=== PATIENT | male | born 2000 | race Caucasian/White ===

== ENCOUNTER 2021-03-22 13:56 | Inpatient (IN) | payer MEDICAID, OTHER ==
[~2021-03-22] VITALS: Ht 185.4 cm; Wt 143.3 kg
[2021-03-22] MEDS ORDERED: ONDANSETRON HCL 4MG/2ML INJ IV STA ×2 (16:41→20:04)
[2021-03-22] MEDS ORDERED: MORPHINE SULFATE 4 MG/ML CPJ (NOT FOR IM USE) IV STA ×2 (16:41→20:04)
[2021-03-22] MEDS ORDERED: SODIUM CHLORIDE 0.9% 1,000 ML IV ONE (16:45)
[2021-03-22 16:58] LABS: CHLORIDE 105 mEq/L (98-107)
[2021-03-22 17:01] LABS: PROTHROMBIN TIME 10.8 sec (9.6-11.0)
[2021-03-22 17:03] LABS: BASOPHILS % 0.2 % (0.0-2.0); EOSINOPHILS % 1.3 % (0.0-5.0); HEMATOCRIT. 43.5 % (42.0-52.0); HEMOGLOBIN. 15.5 g/dL (14.0-18.0); LYMPHOCYTES % 27.9 % (20.0-50.0); MEAN CORPUSCULAR HEMOGLOBIN 32.3 pg (28.0-32.0); MEAN CORPUSCULAR VOLUME 90.8 fL (80.0-94.0); MEAN PLATELET VOLUME 9.2 fl (7.4-10.4); MONOCYTES % 6.2 % (2.0-8.0); NEUTROPHILS % 64.4 % (40.0-76.0); PLATELET 269 x1000/uL (130-400); RED BLOOD CELL COUNT 4.79 mill/uL (4.7-6.1); RED CELL DISTRIBUTION WIDTH 13.3 % (11.6-14.6)
[2021-03-22 17:55] LABS: CLARITY URINE CLEAR (CLEAR); COLOR URINE YELLOW (YELLOW); KETONES URINE NEGATIVE (NEGATIVE); LEUKOCYTE ESTERASE URINE NEGATIVE (NEGATIVE); NITRITE URINE NEGATIVE (NEGATIVE); OCCULT BLOOD URINE NEGATIVE (NEGATIVE); PROTEIN URINE NEGATIVE (NEGATIVE); SPECIFIC GRAVITY URINE 1.024 (1.005-1.030); UROBILINOGEN URINE 0.2 E.U./dL (0.2-1.0)
[2021-03-22] MEDS ORDERED: DEXAMETHASONE 4MG/ML 1ML VIAL IV ONE (19:30)
[2021-03-22] MEDS ORDERED: MORPHINE SULFATE 2 MG/ML CPJ (NOT FOR IM USE) IV PRN (21:15)
[2021-03-22] MEDS ORDERED: NALOXONE HCL 0.4MG/ML VIAL IV PRN (21:30)
[2021-03-22] MEDS ORDERED: CYCL10TA7 PO (23:24)
[2021-03-22] MEDS ORDERED: DICL1TAB55 MT (23:24)
[2021-03-22] MEDS: DEXAMETHASONE 4MG/ML 1ML VIAL IV SCH (23:59)
[2021-03-23] VITALS: BP 137/76
[2021-03-23 00:50] VITALS: BP 143/79
[2021-03-23 04:00] VITALS: BP 140/84
[2021-03-23] MEDS: DEXT 5%/LACTATED RINGERS 1,000 ML IV SCH ×4 (05:12→22:46)
[2021-03-23] MEDS: DEXAMETHASONE 4MG/ML 1ML VIAL IV SCH (05:14)
[2021-03-23] MEDS ORDERED: LIDOCAINE HCL/EPINEPHRINE 1%-EPI 1:100,000 10 ML VIAL ONE ×2 (06:23→07:01)
[2021-03-23] MEDS ORDERED: THROMBIN (BOVINE) 5000 UNITS/VIAL TOP ONE (06:24)
[2021-03-23] MEDS ORDERED: BACITRACIN 50,000 UNITS/VIAL ONE (06:24)
[2021-03-23] MEDS ORDERED: PHENYLEPHRINE HCL 10 MG/ML 1ML (IV VIAL) IV ONE (07:14)
[2021-03-23] MEDS ORDERED: FENTANYL CITRATE/PF 50MCG/ML 2ML VIAL ONE ×3 (07:14→07:59)
[2021-03-23] MEDS ORDERED: GLYCOPYRROLATE 0.2 MG/ML 2ML VIAL ONE (07:14)
[2021-03-23] MEDS ORDERED: NEOSTIGMINE METHYLSULFATE 1MG/ML 10 ML VIAL ONE (07:14)
[2021-03-23] MEDS ORDERED: ROCURONIUM BROMIDE 10MG/ML VIAL 5ML IV ONE ×3 (07:14→08:11)
[2021-03-23] MEDS ORDERED: MIDAZOLAM HCL 2 MG/2 ML VIAL ONE (07:14)
[2021-03-23] MEDS ORDERED: PROPOFOL 200MG/20ML VIAL IV ONE ×2 (07:14→07:59)
[2021-03-23] MEDS ORDERED: SUCCINYLCHOLINE CHLORIDE 200MG/10ML IV ONE (07:15)
[2021-03-23] MEDS ORDERED: METOCLOPRAMIDE HCL 10MG/2ML VIAL ONE (07:15)
[2021-03-23] MEDS ORDERED: MORPHINE SULFATE 2 MG/ML CPJ (NOT FOR IM USE) IV PRN ×2 (07:15→10:45)
[2021-03-23] MEDS ORDERED: ONDANSETRON HCL 4MG/2ML INJ ONE (07:15)
[2021-03-23] MEDS ORDERED: DEXAMETHASONE 4MG/ML 1ML VIAL ONE (07:15)
[2021-03-23] MEDS ORDERED: SODIUM CHLORIDE 0.9% 10ML VIAL ONE (07:15)
[2021-03-23] MEDS ORDERED: CEFAZOLIN SODIUM 1000MG/VIAL ONE (07:15)
[2021-03-23] MEDS ORDERED: HYDRALAZINE 20MG/ML VIAL IV PRN (10:15)
[2021-03-23] MEDS: MORPHINE SULFATE 4 MG/ML CPJ (NOT FOR IM USE) IV PRN ×2 (10:31→15:41)
[2021-03-23] MEDS: ONDANSETRON HCL 4MG/2ML INJ IV PRN ×2 (10:40→11:55)
[2021-03-23] MEDS ORDERED: MEPERIDINE HCL/PF 25MG/ML CPJ IV PRN ×2 (10:45)
[2021-03-23] MEDS ORDERED: HYDROMORPHONE HCL/PF 2MG/ML CPJ IV PRN (10:45)
[2021-03-23] MEDS ORDERED: SODIUM CHLORIDE 0.9% 1,000 ML IV ONE (10:45)
[2021-03-23 12:45] VITALS: BP 141/84
[2021-03-23] MEDS ORDERED: HYDRALAZINE 5 MG in SODIUM CHLORIDE 0.9% 49.75 ML IV PRN (13:30)
[2021-03-23] MEDS ORDERED: CEFAZOLIN SODIUM 1000MG/VIAL IV SCH (14:00)
[2021-03-23 16:00] VITALS: BP 121/67
[2021-03-23] MEDS: CEFAZOLIN 1000MG PREMIX 50 ML IV SCH ×2 (17:26→21:52)
[2021-03-23] MEDS: HYDROCODONE/ACETAMINOPHEN 5/325MG TABLET PO PRN (19:00)
[2021-03-24] VITALS (7 sets, daily range): BP systolic 116–139; BP diastolic 63–81
[2021-03-24] MEDS: MORPHINE SULFATE 4 MG/ML CPJ (NOT FOR IM USE) IV PRN ×3 (04:30→18:30)
[2021-03-24] MEDS: CEFAZOLIN 1000MG PREMIX 50 ML IV SCH ×3 (06:19→22:16)
[2021-03-24] MEDS: DEXT 5%/LACTATED RINGERS 1,000 ML IV SCH ×3 (06:20→22:16)
[2021-03-24 06:39] LABS: CHLORIDE 102 mEq/L (98-107)
[2021-03-24 06:45] LABS: BASOPHILS % 0.1 % (0.0-2.0); EOSINOPHILS % 0.1 % (0.0-5.0); HEMATOCRIT. 36.4 % (42.0-52.0); HEMOGLOBIN. 12.2 g/dL (14.0-18.0); LYMPHOCYTES % 21.6 % (20.0-50.0); MEAN CORPUSCULAR VOLUME 92.5 fL (80.0-94.0); MEAN PLATELET VOLUME 8.9 fl (7.4-10.4); MONOCYTES % 9.8 % (2.0-8.0); NEUTROPHILS % 68.4 % (40.0-76.0); PLATELET 244 x1000/uL (130-400); RED BLOOD CELL COUNT 3.94 mill/uL (4.7-6.1); RED CELL DISTRIBUTION WIDTH 13.1 % (11.6-14.6)
[2021-03-24] MEDS: DEXAMETHASONE 4MG/ML 1ML VIAL IV SCH ×2 (12:28→18:29)
[2021-03-24 21:19] LABS: HEPATITIS B SURFACE ANTIGEN NEGATIVE
[2021-03-24 21:48] LABS: HEPATITIS A AB IGM NEGATIVE (NEGATIVE)
[2021-03-25] VITALS: BP 140/76
[2021-03-25] MEDS: DEXAMETHASONE 4MG/ML 1ML VIAL IV SCH ×3 (01:06→13:53)
[2021-03-25] MEDS: MORPHINE SULFATE 4 MG/ML CPJ (NOT FOR IM USE) IV PRN ×4 (01:07→20:36)
[2021-03-25 04:00] VITALS: BP 128/68
[2021-03-25] MEDS: DEXT 5%/LACTATED RINGERS 1,000 ML IV SCH ×3 (05:45→23:24)
[2021-03-25] MEDS: CEFAZOLIN 1000MG PREMIX 50 ML IV SCH ×2 (05:46→13:53)
[2021-03-25 07:31] LABS: CHLORIDE 102 mEq/L (98-107)
[2021-03-25 07:42] LABS: BASOPHILS % 0.1 % (0.0-2.0); HEMATOCRIT. 36.3 % (42.0-52.0); HEMOGLOBIN. 12.1 g/dL (14.0-18.0); LYMPHOCYTES % 10.3 % (20.0-50.0); MEAN CORPUSCULAR HEMOGLOBIN 30.9 pg (28.0-32.0); MEAN CORPUSCULAR VOLUME 92.5 fL (80.0-94.0); MEAN PLATELET VOLUME 8.9 fl (7.4-10.4); MONOCYTES % 6.3 % (2.0-8.0); NEUTROPHILS % 83.3 % (40.0-76.0); PLATELET 265 x1000/uL (130-400); RED BLOOD CELL COUNT 3.92 mill/uL (4.7-6.1); RED CELL DISTRIBUTION WIDTH 13.1 % (11.6-14.6)
[2021-03-25 12:00] VITALS: BP 133/76
[2021-03-25] MEDS ORDERED: BISACODYL 10MG SUPP PR PRN (13:45)
[2021-03-25 16:00] VITALS: BP 137/87
[2021-03-25] MEDS: DOCUSATE SODIUM 100MG CAPSULE PO SCH (17:27)
[2021-03-25] MEDS: HYDROCODONE/ACETAMINOPHEN 5/325MG TABLET PO PRN (17:28)
[2021-03-25 20:00] VITALS: BP 115/56
[2021-03-25] MEDS: POLYETHYLENE GLYCOL 3350 (17GM) 1 DOSE PACK PO SCH (20:39)
[2021-03-26] VITALS: BP 107/65
[2021-03-26 04:00] VITALS: BP 126/75
[2021-03-26] MEDS: DEXT 5%/LACTATED RINGERS 1,000 ML IV SCH ×2 (05:49→18:38)
[2021-03-26] MEDS: PANTOPRAZOLE 40MG DR TABLET PO SCH (06:39)
[2021-03-26] MEDS: MORPHINE SULFATE 4 MG/ML CPJ (NOT FOR IM USE) IV PRN ×4 (06:57→23:13)
[2021-03-26] MEDS: DOCUSATE SODIUM 100MG CAPSULE PO SCH ×2 (08:25→18:38)
[2021-03-26] MEDS ORDERED: BISACODYL 10MG SUPP PR NR (14:00)
[2021-03-26 20:00] VITALS: BP 118/61
[2021-03-26] MEDS: POLYETHYLENE GLYCOL 3350 (17GM) 1 DOSE PACK PO SCH (21:12)
[2021-03-27] VITALS: BP 108/62
[2021-03-27 04:00] VITALS: BP 117/57
[2021-03-27] MEDS: DEXT 5%/LACTATED RINGERS 1,000 ML IV SCH ×3 (04:54→23:04)
[2021-03-27] MEDS: MORPHINE SULFATE 4 MG/ML CPJ (NOT FOR IM USE) IV PRN ×4 (05:09→23:03)
[2021-03-27] MEDS: PANTOPRAZOLE 40MG DR TABLET PO SCH (06:41)
[2021-03-27 08:00] VITALS: BP 143/78
[2021-03-27] MEDS: DOCUSATE SODIUM 100MG CAPSULE PO SCH ×2 (09:28→17:31)
[2021-03-27 20:00] VITALS: BP 128/81
[2021-03-27] MEDS: POLYETHYLENE GLYCOL 3350 (17GM) 1 DOSE PACK PO SCH (23:03)
[2021-03-28 04:00] VITALS: BP 136/77
[2021-03-28] MEDS: DEXT 5%/LACTATED RINGERS 1,000 ML IV SCH ×4 (06:55→22:12)
[2021-03-28] MEDS ORDERED: LIDOCAINE HCL/EPINEPHRINE 1%-EPI 1:100,000 20 ML VIAL ONE (07:24)
[2021-03-28] MEDS ORDERED: THROMBIN (BOVINE) 5000 UNITS/VIAL TOP ONE ×2 (07:24→07:25)
[2021-03-28 08:00] VITALS: BP 131/67
[2021-03-28] MEDS: DOCUSATE SODIUM 100MG CAPSULE PO SCH ×2 (09:00→17:00)
[2021-03-28] MEDS: FAMOTIDINE 20MG TABLET PO SCH ×2 (09:00→21:00)
[2021-03-28] MEDS: MORPHINE SULFATE 4 MG/ML CPJ (NOT FOR IM USE) IV PRN (09:47)
[2021-03-28] MEDS ORDERED: BACITRACIN 50,000 UNITS/VIAL ONE (10:37)
[2021-03-28 12:00] VITALS: BP 128/74
[2021-03-28] MEDS ORDERED: FENTANYL CITRATE/PF 50MCG/ML 2ML VIAL ONE (13:03)
[2021-03-28] MEDS ORDERED: ROCURONIUM BROMIDE 10MG/ML VIAL 5ML IV ONE ×3 (13:03→14:29)
[2021-03-28] MEDS ORDERED: NEOSTIGMINE METHYLSULFATE 1MG/ML 10 ML VIAL ONE (13:03)
[2021-03-28] MEDS ORDERED: PROPOFOL 200MG/20ML VIAL IV ONE ×2 (13:03→13:58)
[2021-03-28] MEDS ORDERED: METOCLOPRAMIDE HCL 10MG/2ML VIAL ONE (13:04)
[2021-03-28] MEDS ORDERED: GLYCOPYRROLATE 0.2 MG/ML 2ML VIAL ONE (13:04)
[2021-03-28] MEDS ORDERED: PHENYLEPHRINE HCL 10 MG/ML 1ML (IV VIAL) IV ONE (13:04)
[2021-03-28] MEDS ORDERED: DEXAMETHASONE 4MG/ML 1ML VIAL ONE (13:04)
[2021-03-28] MEDS ORDERED: MIDAZOLAM HCL 2 MG/2 ML VIAL ONE (13:04)
[2021-03-28] MEDS ORDERED: ONDANSETRON HCL 4MG/2ML INJ ONE (13:04)
[2021-03-28] MEDS ORDERED: SODIUM CHLORIDE 0.9% 10ML VIAL ONE (13:04)
[2021-03-28] MEDS ORDERED: SUCCINYLCHOLINE CHLORIDE 200MG/10ML IV ONE (13:04)
[2021-03-28] MEDS ORDERED: CEFAZOLIN SODIUM 1000MG/VIAL ONE (13:04)
[2021-03-28] MEDS ORDERED: HYDROMORPHONE HCL/PF 2MG/ML (OR) ONE (13:43)
[2021-03-28] MEDS ORDERED: LABETALOL HCL 5MG/ML VIAL 20ML IV ONE (13:59)
[2021-03-28] MEDS ORDERED: HYDRALAZINE 20MG/ML VIAL ONE (15:27)
[2021-03-28] MEDS ORDERED: LABETALOL 5MG/ML SYR 20 MG/4 ML SYRINGE IV NR (15:45)
[2021-03-28] MEDS ORDERED: MEPERIDINE HCL/PF 25MG/ML CPJ IV PRN ×2 (15:45)
[2021-03-28] MEDS ORDERED: MORPHINE SULFATE 2 MG/ML CPJ (NOT FOR IM USE) IV PRN (15:45)
[2021-03-28] MEDS ORDERED: HYDROMORPHONE HCL/PF 2MG/ML CPJ IV PRN (15:45)
[2021-03-28] MEDS ORDERED: ONDANSETRON HCL 4MG/2ML INJ IV PRN (15:45)
[2021-03-28] MEDS ORDERED: SODIUM CHLORIDE 0.9% 1,000 ML IV ONE (15:45)
[2021-03-28] MEDS ORDERED: HYDROMORPHONE PCA 10MG/50ML IV PRN (16:45)
[2021-03-28] MEDS ORDERED: DIPHENHYDRAMINE INJ IV PRN (16:45)
[2021-03-28] MEDS ORDERED: ONDANSETRON INJ IV PRN (16:45)
[2021-03-28] MEDS ORDERED: NALOXONE INJ IV PRN (16:45)
[2021-03-28 20:00] VITALS: BP 138/68
[2021-03-28] MEDS: POLYETHYLENE GLYCOL 3350 (17GM) 1 DOSE PACK PO SCH (21:00)
[2021-03-28] MEDS ORDERED: CEFAZOLIN SODIUM 1000MG/VIAL IV SCH (22:00)
[2021-03-28] MEDS: CEFAZOLIN 1000MG PREMIX 50 ML IV SCH (22:11)
[2021-03-29] MEDS: MORPHINE SULFATE 4 MG/ML CPJ (NOT FOR IM USE) IV PRN ×5 (05:23→20:08)
[2021-03-29] MEDS: CEFAZOLIN 1000MG PREMIX 50 ML IV SCH ×3 (06:36→21:49)
[2021-03-29 08:00] VITALS: BP 97/44
[2021-03-29] MEDS: FAMOTIDINE 20MG TABLET PO SCH ×2 (09:20→21:49)
[2021-03-29] MEDS: DOCUSATE SODIUM 100MG CAPSULE PO SCH ×2 (09:20→16:16)
[2021-03-29] MEDS: DEXT 5%/LACTATED RINGERS 1,000 ML IV SCH ×3 (09:22→23:30)
[2021-03-29 12:00] VITALS: BP 116/64
[2021-03-29] MEDS ORDERED: SODIUM CHLORIDE 0.9% 500 ML IV SCH (13:45)
[2021-03-29 16:00] VITALS: BP 121/77
[2021-03-29 20:00] VITALS: BP 141/78
[2021-03-29] MEDS: ACETAMINOPHEN 325MG TABLET PO PRN (21:49)
[2021-03-29] MEDS: POLYETHYLENE GLYCOL 3350 (17GM) 1 DOSE PACK PO SCH (21:49)
[2021-03-29 21:54] LABS: BASOPHILS % 0.3 % (0.0-2.0); EOSINOPHILS % 0.6 % (0.0-5.0); HEMATOCRIT. 29.2 % (42.0-52.0); HEMOGLOBIN. 10.2 g/dL (14.0-18.0); MEAN CORPUSCULAR HEMOGLOBIN 31.7 pg (28.0-32.0); MEAN CORPUSCULAR VOLUME 91.1 fL (80.0-94.0); MONOCYTES % 11.9 % (2.0-8.0); NEUTROPHILS % 73.2 % (40.0-76.0); PLATELET 287 x1000/uL (130-400); RED BLOOD CELL COUNT 3.21 mill/uL (4.7-6.1)
[2021-03-30] VITALS: BP 142/85
[2021-03-30] MEDS: MORPHINE SULFATE 4 MG/ML CPJ (NOT FOR IM USE) IV PRN ×7 (00:34→21:12)
[2021-03-30 04:00] VITALS: BP 141/88
[2021-03-30] MEDS: ACETAMINOPHEN 325MG TABLET PO PRN ×2 (04:51→16:59)
[2021-03-30] MEDS: CEFAZOLIN 1000MG PREMIX 50 ML IV SCH ×2 (06:07→14:31)
[2021-03-30] MEDS: DEXT 5%/LACTATED RINGERS 1,000 ML IV SCH ×3 (06:55→22:42)
[2021-03-30 08:00] VITALS: BP 116/83
[2021-03-30] MEDS: FAMOTIDINE 20MG TABLET PO SCH ×2 (09:03→21:12)
[2021-03-30] MEDS: DOCUSATE SODIUM 100MG CAPSULE PO SCH ×2 (09:03→16:59)
[2021-03-30 12:00] VITALS: BP 145/81
[2021-03-30 16:00] VITALS: BP 118/56
[2021-03-30 20:00] VITALS: BP 100/63
[2021-03-30] MEDS: POLYETHYLENE GLYCOL 3350 (17GM) 1 DOSE PACK PO SCH (21:12)
[2021-03-31] VITALS: BP 135/74
[2021-03-31] MEDS: LACTULOSE 20G/30ML UDC PO SCH ×3 (00:42→14:06)
[2021-03-31] MEDS: MORPHINE SULFATE 4 MG/ML CPJ (NOT FOR IM USE) IV PRN ×8 (00:50→22:50)
[2021-03-31 04:00] VITALS: BP 140/84
[2021-03-31 05:33] LABS: BASOPHILS % 0.2 % (0.0-2.0); HEMATOCRIT. 28.3 % (42.0-52.0); HEMOGLOBIN. 9.6 g/dL (14.0-18.0); LYMPHOCYTES % 18.4 % (20.0-50.0); MEAN CORPUSCULAR HEMOGLOBIN 31.5 pg (28.0-32.0); MEAN CORPUSCULAR VOLUME 92.4 fL (80.0-94.0); MEAN PLATELET VOLUME 8.5 fl (7.4-10.4); MONOCYTES % 10.3 % (2.0-8.0); NEUTROPHILS % 68.1 % (40.0-76.0); PLATELET 281 x1000/uL (130-400); RED BLOOD CELL COUNT 3.06 mill/uL (4.7-6.1); RED CELL DISTRIBUTION WIDTH 13.1 % (11.6-14.6)
[2021-03-31 06:05] LABS: CHLORIDE 102 mEq/L (98-107)
[2021-03-31] MEDS: DEXT 5%/LACTATED RINGERS 1,000 ML IV SCH ×3 (06:26→22:50)
[2021-03-31 08:00] VITALS: BP 135/76
[2021-03-31] MEDS: FAMOTIDINE 20MG TABLET PO SCH ×2 (08:06→20:16)
[2021-03-31] MEDS: DOCUSATE SODIUM 100MG CAPSULE PO SCH ×2 (08:06→17:00)
[2021-03-31] MEDS: BISACODYL 10MG SUPP PR SCH (08:10)
[2021-03-31 12:00] VITALS: BP 131/77
[2021-03-31 16:00] VITALS: BP 115/64
[2021-03-31 20:00] VITALS: BP_SYST 117; BP_SYST 120; BP_DIAS 59; BP_DIAS 91
[2021-03-31] MEDS: POLYETHYLENE GLYCOL 3350 (17GM) 1 DOSE PACK PO SCH (20:21)
[2021-04-01] VITALS: BP 117/72
[2021-04-01] MEDS: MORPHINE SULFATE 4 MG/ML CPJ (NOT FOR IM USE) IV PRN ×5 (01:30→20:40)
[2021-04-01 04:00] VITALS: BP 130/82
[2021-04-01 08:00] VITALS: BP 148/84
[2021-04-01] MEDS: BISACODYL 10MG SUPP PR SCH (09:35)
[2021-04-01] MEDS: DEXT 5%/LACTATED RINGERS 1,000 ML IV SCH ×3 (09:35→23:36)
[2021-04-01] MEDS: FAMOTIDINE 20MG TABLET PO SCH ×2 (10:16→20:40)
[2021-04-01] MEDS: DOCUSATE SODIUM 100MG CAPSULE PO SCH ×2 (10:18→18:12)
[2021-04-01 12:00] VITALS: BP 125/88
[2021-04-01] MEDS: HYDROCODONE/ACETAMINOPHEN 10/325MG TABLET PO PRN ×2 (14:14→22:55)
[2021-04-01 16:00] VITALS: BP 127/69
[2021-04-01 20:00] VITALS: BP 124/55
[2021-04-01] MEDS ORDERED: ACETAMINOPHEN 325MG TABLET PO PRN (20:00)
[2021-04-01] MEDS: POLYETHYLENE GLYCOL 3350 (17GM) 1 DOSE PACK PO SCH (20:41)
[2021-04-02] VITALS: BP 115/56
[2021-04-02 04:00] VITALS: BP 125/61
[2021-04-02 08:00] VITALS: BP 111/78
[2021-04-02] MEDS: BISACODYL 10MG SUPP PR SCH (08:20)
[2021-04-02] MEDS: DOCUSATE SODIUM 100MG CAPSULE PO SCH ×2 (08:42→17:25)
[2021-04-02] MEDS: FAMOTIDINE 20MG TABLET PO SCH ×2 (08:43→20:15)
[2021-04-02] MEDS: MORPHINE SULFATE 4 MG/ML CPJ (NOT FOR IM USE) IV PRN (08:44)
[2021-04-02] MEDS: HYDROCODONE/ACETAMINOPHEN 10/325MG TABLET PO PRN ×2 (10:55→17:26)
[2021-04-02 16:00] VITALS: BP 132/82
[2021-04-02 18:05] VITALS: BP 132/82
[2021-04-02 20:00] VITALS: BP 123/66
[2021-04-02] MEDS: POLYETHYLENE GLYCOL 3350 (17GM) 1 DOSE PACK PO SCH (20:15)
== END 2021-04-02 19:38 | DRG 310 ==
LOC: ER 13:56 → 6EST 20:39 → ENRESERV 20:56 → 6EST 03-29 05:05
PROVIDERS: ADMIT Internal Medicine; ATTEND Internal Medicine
PROC: 01NB0ZZ Release Lumbar Nerve, Open Approach (ICD-10-PCS; principal; 2021-03-23)
PROC: 0ST20ZZ Resection of Lumbar Vertebral Disc, Open Approach (ICD-10-PCS; 2021-03-23)
PROC: 009U0ZZ Drainage of Spinal Canal, Open Approach (ICD-10-PCS; 2021-03-28)
PROC: 00NY0ZZ Release Lumbar Spinal Cord, Open Approach (ICD-10-PCS; 2021-03-28)
PROC: 0SB20ZZ Excision of Lumbar Vertebral Disc, Open Approach (ICD-10-PCS; 2021-03-28)
PROC: 4A11X4Z Monitoring of Peripheral Nervous Electrical Activity, External Approach (ICD-10-PCS; 2021-03-28)
DX: M48.061 Spinal stenosis, lumbar region without neurogenic claudication (principal); S34.109A Unspecified injury to unspecified level of lumbar spinal cord, initial encounter; G82.20 Paraplegia, unspecified; K59.2 Neurogenic bowel, not elsewhere classified; R65.10 Systemic inflammatory response syndrome (SIRS) of non-infectious origin without acute organ dysfunction; S06.4X0A Epidural hemorrhage without loss of consciousness, initial encounter; G83.4 Cauda equina syndrome; M47.9 Spondylosis, unspecified; N52.9 Male erectile dysfunction, unspecified; E66.9 Obesity, unspecified; D64.9 Anemia, unspecified; R74.01 Elevation of levels of liver transaminase levels; Z20.822 Contact with and (suspected) exposure to COVID-19; D72.829 Elevated white blood cell count, unspecified; R73.9 Hyperglycemia, unspecified; R26.9 Unspecified abnormalities of gait and mobility; X58.XXXA Exposure to other specified factors, initial encounter; Y93.89 Activity, other specified; Y92.89 Other specified places as the place of occurrence of the external cause; Y99.8 Other external cause status; Z68.41 Body mass index [BMI] 40.0-44.9, adult; M51.26 Other intervertebral disc displacement, lumbar region
CPT/HCPCS: 36415; 71045; 72100; 72148; 76000; 76705; 80048; 80053; 81003; 85025; 86705; 86709; 86803; 86850; 86900; 87340; 87426; 88304; 88311; 95863; 95925; 95926; 95928; 95929; 95940; 97110; 97162; 97164; 97166; 97530; 97535; 99291; C1893; J0330; J0360; J0690; J1100; J1170; J2175; J2250; J2270; J2370; J2405; J2704; J2710; J2765; J3010; J3490; J7030; J7040; J7121; 97763-GP